=== PATIENT | male | born 1940 | race Caucasian/White ===

== ENCOUNTER → 2016-11-07 | Outpatient (CLI) | payer OTHER, BC ==
[~2016-11-07] VITALS: Ht 170.2 cm; Wt 101.6 kg
[~2016-11-07] MED LIST: ASPIR 8181 MG PO; ATORVASTATIN CA80 MG PO; BACLOFEN 10MG T10 M1 PO; BACLOFEN 10MG T10 MG PO; CENTRUM SILVER1 EAC4 PO; FISH OIL 1,2001 EAC4 PO; HYDROCODON-ACE1 EAC7 PO; HYDROCODONE-AP1 EAC6 PO; LEXAPRO 10 MG T10 M2 PO; LEXAPRO20 MG PO; NABUMETONE 500500 M1 PO; NABUMETONE 500500 M2 PO; NEURONTIN 300300 M1 PO; POTASSIUM20; POTASSIUM99 M1 PO; PRILOSEC 20 MG20 MG PO; STATIN; VERAPAMIL ER180 MG PO; VITAMINC500 PO; VOLTAREN GEL 1100 G1 TOP; ZANAFLEX4 MG PO; ZETIA10 MG PO
--- NOTE | ~2016-11-07 | HPC ---
[facility] [address] [place] [place] [address] PAIN MANAGEMENT CONSULTATION Name: DAVE MEJIAS Room #: REG CHEVY Jeni#: [id number] Admission: 11/07/16 Attend Phys: Bert Beard DO Discharge: Date of : 40 Report #: [id number] THIS REPORT FOR: //name// CC: Bert Monge RN DATE OF SERVICE: 11/07/2016 REFERRING PHYSICIAN: Sarah Monge RN CHIEF COMPLAINT: Right mid back pain. HISTORY OF PRESENT ILLNESS: As you know, the patient is a 76-year-old male who returns today in followup visit with new onset of right mid back pain. The patient has been advised by his chiropractor that he has "a displaced rib." The patient sought evaluation through neurosurgery as he has recently been treated for lumbar radicular symptoms with surgical options. Their evaluation indicated tenderness in the right mid back area, I was contacted by phone by nurse practitioner, Sarah Monge and we discussed having the patient undergo imaging of the thoracic area to determine if there is specific pathology noted. The patient was subsequently referred back to our clinic with the recent imaging study to review and discuss treatment options for his right midback pain. He denies injury or trauma that may have led to symptoms. He is placing his pain score today somewhere up to 1-3/10. He indicates that pain is just present, it just hurts, there does not seem to be anything that exacerbates symptoms except lying on that side, improves with medications. He was recently given Voltaren gel at our suggestion and this has nearly resolved symptoms. ALLERGIES: No known drug allergies. CURRENT MEDICATIONS: Voltaren gel apply topically up to 3 times a day, hydrocodone 5/325 one tab p.o. q.6 hours p.r.n. for pain, aspirin 81 mg per day, Lexapro 10 mg per day, atorvastatin 80 mg per day, omega-3 fish oil 1 tab per day, potassium gluconate 90 mg per day, omeprazole 20 mg per day, ascorbic acid 500 mg once a day, multivitamin 1 tab per day, Aleve 220 mg p.r.n., and verapamil 180 mg per day. SOCIAL HISTORY: The patient denies tobacco, IV or illicit drug use, admits to 4 alcohol beverages per day. He is newly retired. He is accompanied by his who is present in room today. IMAGING: X-ray of thoracic spine obtained on 11/03/2016 shows mild scoliotic curvature in the lower thoracic area convex to the right mineralization appears normal. No fractures identified. No lytic or blastic lesions present. Intervertebral disks showed narrowing and degeneration of [place] [address] PAIN MANAGEMENT CONSULTATION Name: DAVE MEJIAS Room #: REG CHEVY Ngo#: [id number] Admission: 11/07/16 Attend Phys: Bert Beard DO Discharge: Date of : 40 Report #: [id number] the mid and lower thoracic area, disk space narrowing greatest at T7, T8 and T9, mild osteophytic formation. The impression was some mild degenerative arthritic changes in the mid to lower thoracic area intervertebral disk space narrowing, degenerative disk disease, no displaced ribs. PHYSICAL EXAMINATION: VITAL SIGNS: Blood pressure 131/73, pulse 74, respiratory rate 20 and unlabored, the patient is 97% on room air, height 5 feet 7 inches tall, weight 224 pounds, and BMI calculated 35.1. GENERAL: Well-developed, well-nourished, well-hydrated, morbidly obese 76-year-old male, appearing stated age, placing current pain score at around 1-2/10. HEENT: Normocephalic, atraumatic. Pupils are equal, round, and reactive to light. Extraocular muscles are intact. Sclerae are nonicteric without injection. NEUROLOGIC: Cranial nerves 2-12 are grossly intact. Speech is fluent. EXTREMITIES: Show no clubbing, no cyanosis, and no edema. MUSCULOSKELETAL: The patient does have palpatory tenderness over the right mid back area. There is a significant amount of muscle spasming in and around the lower rib area, the rib itself is palpable and there is a slight fullness of the right mid back versus the left. The patient is intact to light touch from T1 through T12 dermatomes. Deep inhalation and exhalation causes no change in pain. Normal tidal volume, breathing causes no change in symptoms. Deep palpation causes no radiation of pain. ASSESSMENT: 1. Myofascial pain. 2. 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 3. Muscle spasming. PLAN: 1. Based on today's physical exam, history the patient has provided, the description the patient uses in regards to pain as well as location of symptoms and the lack of any specific pathology noted in x-ray imaging, likely source of the patient's pain is myofascial in origin. It does appear that the iliocostalis muscle and possibly even partial anterior spasming is noted in the lower portion of the thoracic area. The pain the patient is experiencing appears to be related to the musculature attached to the lower 2 ribs, right-sided #11 and #12. There is no appreciable ecchymosis or bruising concerning of any rib fractures. Findings on x-ray imaging show no fractures themselves. There has been no injury that may have led to the symptoms. The patient recently underwent surgery and I believe the surgical process may have exacerbated muscle spasming and caused some scarring in the area and this is caused tension in the musculature. I would recommend a very conservative approach to treatment. Given the fact the patient was started on Voltaren only a couple of days back with sample of Voltaren gels with good efficacy, the [facility] [address] [place] [address] PAIN MANAGEMENT CONSULTATION Name: DAVE MEJIAS Room #: REG CHEVY Ngo#: [id number] Admission: 11/07/16 Attend Phys: Bert Beard DO Discharge: Date of : 40 Report #: [id number] likely source of the symptoms is myofascial given the impressive improvement in symptoms with topical 1% diclofenac. The following was discussed with the patient for conservative treatment. 2. The patient will be sent for physical therapy twice a week for 4 weeks, differential diagnosis myofascial pain and lower right thoracic pain. The patient will begin this physical therapy as quickly as possible. He will utilize the Voltaren gel on an as needed basis to assist in pain control while he undergoes PT. I believe that stretching and core strengthening in this patient's case would be optimal in treatment for this symptom. 3. The patient did receive excellent improvement in symptoms with the Voltaren gel. I see no reason to not to continue this medication. We provided the patient with Voltaren gel 1% solution prescription. He was given five 100 g tubes for application of 4 inches up to 4 times a day to affected area. This has been extremely beneficial for the patient. He has noted near complete resolution of symptoms with this medication. He continues to experience some muscle spasming for which we will treat with other therapies. He was given this prescription with two refills. 4. The patient was provided a prescription of tizanidine 4 mg dose, he can take this tablet up to 3 times a day for muscle spasming, given #60 tablets, 2 refills. The patient was advised not to drive or operate heavy equipment while on this muscle spasming medication. 5. We wish to thank Sarah Monge for the opportunity to see the patient back in consultation. We are hopeful that the suggestions treatment options will improve the patient's overall pain. We will see him back in followup visit on an as needed basis. By: [id number] Bert Beard DO /nt
[2016-11-07 08:50] VITALS: BP 131/73
== END ==
LOC: PAIN 06:51
DX: M79.1 Myalgia (principal); E66.01 Morbid (severe) obesity due to excess calories; Z68.35 Body mass index [BMI] 35.0-35.9, adult; M46.84 Other specified inflammatory spondylopathies, thoracic region; Z79.82 Long term (current) use of aspirin; Z87.891 Personal history of nicotine dependence

== ENCOUNTER → 2018-01-09 | Outpatient (CLI) | payer OTHER ==
[~2018-01-09] VITALS: Ht 170.2 cm; Wt 99.3 kg
[~2018-01-09] MED LIST changes: +ALEVE220 MG PO
--- NOTE | ~2018-01-09 | HPC ---
[facility] [address] [address] PAIN MANAGEMENT CONSULTATION Name: DAVE MEJIAS Room #: REG CHEVY Jeni#: [id number] Admission: 01/09/18 Attend Phys: Bert Beard DO Discharge: Date of : 40 Report #: [id number] THIS REPORT FOR: //name// CC: Bert CALDERON DATE OF SERVICE: 01/09/2018 REFERRING NURSE PRACTITIONER: Sarah Monge NP CHIEF COMPLAINT: Bilateral upper buttock pain. HISTORY OF PRESENT ILLNESS: As you know, the patient is a very pleasant 77-year-old male who returns today in followup visit per the request of his Neurosurgery team to discuss the possibility of undergoing bilateral SI joint injections. The patient is reporting bilateral upper buttock pain for which he places pain scores 7-9/10. He states his pain is constant in nature. He uses descriptors as burning, shooting, hot poker-like sensation when describing pain. He states the pain is exacerbated with walking, improves with sitting and resting. He sought evaluation through the Neurosurgery team who requested that we see the patient in regards to bilateral SI joint injections. He has been referred back to our clinic to discuss this option of treatment. He denies new injury or new trauma, but has had surgery since our last visit. This was a surgery performed through [facility] on his low back. ALLERGIES: No known drug allergies. CURRENT MEDICATIONS: Hydrocodone, gabapentin, nabumetone, Lexapro, atorvastatin, omega-3 fish oil, potassium gluconate, Zetia, omeprazole, ascorbic acid, multivitamin and verapamil. SOCIAL HISTORY: The patient denies tobacco, IV or illicit drug use. Admits to 1 alcohol beverage per day. He is retired. He is accompanied by his who is present in room today. IMAGING: MRI of lumbar spine obtained on 12/05/2017 shows scoliotic curvature of the lumbar spine, degenerative changes throughout osteophyte complexes at L2-L3, L3-L4 and L4-L5, facet arthropathy noted at L4-L5, diffuse annular disk bulge, central canal measuring 9 mm. This is the same at L5-S1. PHYSICAL EXAMINATION: VITAL SIGNS: Blood pressure 127/68, pulse 64, respiratory rate 18, unlabored. The patient is 95% on room air. Height 5 feet 7 inches tall, weight 219 pounds, BMI calculated 34.3. GENERAL: A well-developed, well-nourished, well-[place] [address] PAIN MANAGEMENT CONSULTATION Name: DAVE MEJIAS Room #: REG CLI [facility]#: [id number] Admission: 01/09/18 Attend Phys: Bert Beard DO Discharge: Date of : 40 Report #: [id number] 77-year-old male, appears stated age, placing his current pain score 9/10. HEENT: Normocephalic, atraumatic. Pupils equal, round, reactive to light. Extraocular muscles are intact. EXTREMITIES: Show no clubbing, no cyanosis, no edema. MUSCULOSKELETAL: There is some palpatory tenderness over the SI joints bilaterally. Deep palpation of this area causes mild intensification of pain. He is also quite tender to palpation lateral to the SI joints overlying what appears to be the buttock musculature. Seated straight leg raising negative. Supine straight leg raising negative. There is a well-healed surgical scar over the lumbar spine. No erythema, no drainage. ASSESSMENT: 1. Bilateral sacroiliac joint dysfunction. 2. Chronic intractable back pain. 3. Lumbosacral spondylosis without radiculopathy. PLAN: 1. The patient has been referred back to our clinic by his Neurosurgery team to trial bilateral SI joint injections. The patient does have some tenderness to palpation today over the SI joints. His exacerbating factors is walking, which would correlate with SI joint dysfunction. We have discussed the injections with the patient today. We have advised him on the risks and benefits. These risks include but are not necessarily limited to bleeding, bruising, infection, worsening pain, no relief of pain and also risk of temporary or permanent muscle weakness, temporary or permanent joint damage. The patient states he understood and did wish to proceed. 2. The patient was advised that third green party payers require that authorization be obtained before he could undergo bilateral SI joint injection. We will begin the authorization process immediately, contact the patient once this has been completed and have him return to undergo bilateral SI joint injections per the request of his Neurosurgery team. The patient was advised this could take anywhere from 4-7 working days, will begin the process today. 3. No medication changes made at today's visit. The patient will continue current medical therapy as previously prescribed. 4. I will see the patient back in followup visit once we have achieved authorization for him to undergo bilateral SI joint injections under fluoroscopic guidance. By: [id number] Bert Beard DO /nt
[2018-01-09 09:38] VITALS: BP 127/68
== END ==
LOC: PAIN 07:07
DX: M47.817 Spondylosis without myelopathy or radiculopathy, lumbosacral region (principal); G89.4 Chronic pain syndrome; M53.3 Sacrococcygeal disorders, not elsewhere classified

== ENCOUNTER → 2018-01-16 | Outpatient (CLI) | payer OTHER ==
[~2018-01-16] VITALS: Ht 170.2 cm; Wt 100.7 kg
--- NOTE | ~2018-01-16 | HPC ---
[address] [address] PAIN MANAGEMENT CONSULTATION Name: DAVE MEJIAS Room #: REG CLKristen Jeni#: [id number] Admission: 01/16/18 Attend Phys: Bert Beard DO Discharge: Date of : 40 Report #: [id number] THIS REPORT FOR: //name// CC: Bert Manley NP DATE OF SERVICE: 01/16/2018 REFERRING PHYSICIAN: Sarah Manley NP CHIEF COMPLAINT: Bilateral upper buttock pain. HISTORY OF PRESENT ILLNESS: As you know, the patient is a very pleasant 77-year-old male who has returned today in followup visit receiving preauthorization to undergo bilateral SI joint injections per the request of his neurosurgery team. There is concern that the patient is suffering from bilateral SI joint pain, which is compounding his ongoing pain issues. He has been referred back to our clinic to trial this injection. We saw the patient on 01/09/2018, advised that third green party payer restrictions require that authorization be obtained, he is now obtained this authorization, returning today to undergo the procedure. He is placing pain score at 8/10, states his pain is constant, burning, shooting, hot poker like in sensation, exacerbated with walking and standing, improves with rest and repositioning. He returns for bilateral SI joint injections. ALLERGIES: No known drug allergies. CURRENT MEDICATIONS: Hydrocodone, gabapentin, nabumetone, Lexapro, atorvastatin, omega-3 fish oil, potassium gluconate, Zetia, omeprazole, ascorbic acid, multivitamin, and verapamil. SOCIAL HISTORY: The patient denies tobacco, IV or illicit drug use, admits to one alcoholic beverage per day. He is retired. He is unaccompanied today. IMAGING: No new imaging available. PHYSICAL EXAMINATION: VITAL SIGNS: Blood pressure 124/71, pulse 58, respiratory rate 16 and unlabored, the patient is 95% on room air, height 5 feet 7 inches tall, weight 222 pounds, BMI calculated 34.8. GENERAL: Well-developed, well-nourished, well-hydrated, exogenously obese 77-year-old male, appearing stated age, placing current pain score at 8/10. HEENT: Normocephalic, atraumatic. Pupils are equal, round, and reactive to light. [address] [address] PAIN MANAGEMENT CONSULTATION Name: RANDELLDAVE Viry [facility] [id number] Admission: 01/16/18 Attend Phys: Bert Beard DO Discharge: Date of : 40 Report #: [id number] EXTREMITIES: Show no clubbing, no cyanosis, and no edema. MUSCULOSKELETAL: Seated straight leg raising negative. Supine straight leg raising negative. Sae's test negative. There is palpatory tenderness over the paraspinal musculature of lower lumbar spine, no spinous process tenderness. Deep palpation over the SI joint causes intensification of pain. ASSESSMENT: 1. Bilateral sacroiliac joint pain. 2. Chronic intractable pain. 3. Continued lumbosacral spondylosis without radicular symptoms. PLAN: 1. The patient has returned today in followup visit having received precertification to undergo bilateral SI joint injections under fluoroscopic guidance. The patient has been advised of the risks and the benefits of this procedure. These risks include, but not necessarily limited to bleeding, bruising, infection, worsening of pain, no relief of pain, also risk of temporary or permanent muscle weakness, temporary or permanent nerve damage, possible paralysis and potential . The patient states understood and wished to proceed. 2. No medication changes made at today's visit. The patient to continue current medical therapy as previously prescribed. 3. The patient will return to our clinic on an as needed basis for the potential next in the series of SI joint injections. He leaves today with a pain score 0/10 indicating the likely source of the patient's symptoms are the SI joints given the immediate response to the local anesthetic within the injection. PROCEDURE NOTE DESCRIPTION OF PROCEDURE: Bilateral SI joint injections under fluoroscopic guidance. After obtaining written consent, the patient was taken back to fluoroscopy suite, placed in a prone position with pillow under abdomen to decrease lumbar lordosis. Skin overlying the gluteal sacral area directly over the left SI joint and right SI joint were prepped and draped in aseptic fashion. A medial to lateral oblique projection allowed separation of the anterior and posterior branches of the joint space to be visualized. Skin and subcutaneous tissue overlying target site of injection was anesthetized with 3 mL of 1% lidocaine. A 22-gauge 3-1/2-inch spinal needle with bent tip was directed to the inferior aspect of the right SI joint using a posterior approach. A "giving away" at the needle hub was noted once the dorsal sacroiliac and interosseous ligaments were engaged. After negative aspiration for heme, a total of 0.4 mL of Omnipaque was injected, outlining the inferior recess of the joint. Provocation responses consistent of intense buttock pain were negative. After negative aspiration for [facility] [address] [place] [address] PAIN MANAGEMENT CONSULTATION Name: DAVE MEJIAS Room #: REG CHEVY Ngo#: [id number] Admission: 01/16/18 Attend Phys: Bert Beard DO Discharge: Date of : 40 Report #: [id number] heme, 3 mL of a solution containing 1 mL 40 mg per mL, 40 mg total triamcinolone, 2 mL bupivacaine 0.5% injected slowly. Needle retracted senior living, flushed with 1 mL of 1% lidocaine and removed. Our attention was then directed to the left SI joint. A 22-gauge 3-1/2-inch spinal needle with bent tip was directed to the inferior aspect of the sacroiliac joint using a posterior approach. A "giving away" at the needle hub was noted once the dorsal sacroiliac interosseous ligaments were engaged. After negative aspiration for heme, 0.4 mL of Omnipaque injected, outlining the inferior recess of the joint. Provocation responses consistent of intense buttock pain were negative. After negative aspiration for heme, 3 mL of a solution containing 1 mL 40 mg per mL, 40 mg total triamcinolone, 2 mL bupivacaine 0.5% injected slowly. Needle retracted senior living, flushed with 1 mL of 1% lidocaine and removed. Sterile bandages were placed over each injection sites. The patient tolerated the procedure well, carefully escorted to recovery room in stable condition. VAS before procedure rated at 8/10, VAS 10 minutes after procedure rated at 0/10. The patient discharged in good and healthy condition. By: [id number] Bert Beard, DO /nt
[2018-01-16 10:32] VITALS: BP 124/71
== END | disposition home or self-care (01) ==
LOC: PAIN 07:02
DX: M53.3 Sacrococcygeal disorders, not elsewhere classified (principal); G89.29 Other chronic pain; M47.816 Spondylosis without myelopathy or radiculopathy, lumbar region; Z79.891 Long term (current) use of opiate analgesic; Z79.82 Long term (current) use of aspirin; Z79.899 Other long term (current) drug therapy

== ENCOUNTER → 2018-11-20 | Outpatient (CLI) | payer OTHER ==
[~2018-11-20] VITALS: Ht 170.2 cm; Wt 94.8 kg
[~2018-11-20] MED LIST changes: -LEXAPRO 10 MG T10 M2 PO
--- NOTE | ~2018-11-20 | HPC ---
[facility] [place] [address] PAIN MANAGEMENT CONSULTATION Name: DAVE MEJIAS Room #: REG CHEVY Jeni#: [id number] Admission: 11/20/18 ������������������ Attend Phys: Bert Beard DO Discharge: ������������������ Date of : 40 Report #: [id number] THIS REPORT FOR: //name// CC: Bert Manley NP DATE OF SERVICE: 11/20/2018 CHIEF COMPLAINT: Low back pain. HISTORY OF PRESENT ILLNESS: As you know, the patient is a 78-year-old male with long-standing history of axial back pain issues. He has been lost to follow up since 01/16/2018 where he was provided treatment for bilateral SI joint pains per the request of his neurosurgery team. He has had resolution of his SI joint symptoms, but now is experiencing axial back pain issues. He has not sought evaluation through his primary care physician in regards to this issue nor has he sought treatment or suggested treatment through Neurosurgery. He has returned to our clinic to discuss options for treatment for this axial back pain. He denies injury or trauma that may have led to symptom recurrence. ALLERGIES: No known drug allergies. CURRENT MEDICATIONS: Hydrocodone, gabapentin, Celebrex, Lexapro, atorvastatin, omega-3 fish oil, potassium gluconate, Zetia, omeprazole, ascorbic acid, multivitamin, verapamil. SOCIAL HISTORY: The patient denies tobacco, IV or illicit drug use. Admits to one alcohol beverage per day. He is unaccompanied today. IMAGING: No new imaging available. PHYSICAL EXAMINATION: VITAL SIGNS: Blood pressure 130/84, pulse 63, respiratory rate 16 and unlabored, the patient is 97% on room air. Height 5 feet 7 inches tall, weight 209 pounds, BMI calculated at 32.7. GENERAL: Well-developed, well-nourished, well-hydrated, exogenously obese 78-year-old male, appearing his stated age. Pain is rated around 3/10. HEENT: Normocephalic, atraumatic. Pupils are equal, round, and reactive to light. Speech fluent. EXTREMITIES: Show no clubbing, no cyanosis, and no edema. MUSCULOSKELETAL: There is palpatory tenderness over the paraspinal musculature of lower lumbar spine. No spinous process tenderness. Seated straight leg raising negative. Supine straight leg raising negative. REGLA test is negative. Modified Gaenslen's positive for axial low back pain. Ankle clonus [facility] [address] [place] [address] PAIN MANAGEMENT CONSULTATION Name: DAVE MEJIAS Room #: REG CLKristen WalkerAngella#: [id number] Admission: 11/20/18 ������������������ Attend Phys: Bert Beard DO Discharge: ������������������ Date of : 40 Report #: [id number] negative. Babinski is negative. Pain is improved with forward flexion of lumbar spine approximately 15 degrees. Exacerbated with extension, rotation and lateral flexion of the lumbar spine. ASSESSMENT: 1. Lumbosacral spondylosis without radiculopathy. 2. Obesity. 3. Chronic intractable pain. PLAN: 1. The patient returns today in followup visit with continued axial back pain. As indicated in previous evaluations, he is suffering from facet arthropathy of the lumbar spine and has been advised treatments in the past. We discussed it again today. We discussed physical therapy, stretching exercises, core strengthening as a way to treat symptoms as well as concerted effort of weight loss. We discussed medication adjustments, putting him back on the nabumetone and discontinuing his Celebrex in hopes of providing better benefit with higher analgesic effect. We discussed intra-articular facet injections, medial branch nerve blocks and radiofrequency lesioning as treatment options for facet arthropathy pain. Ultimately, we discussed surgical options. After reviewing risks and benefits of all proposed treatment options, the patient chose to move forward with intra-articular facet injections under fluoroscopic guidance to address the bilateral L4-L5, L5-S1 facet joints. 2. The patient will discontinue his Celebrex for the next week. In place, he will reinitiate the nabumetone therapy. Recommend 500 mg 3 times a day with meals. This will be only for a very short period of time, but to determine if his symptoms would be amenable to a more effective anti-inflammatory. The patient has this medication available and does not need a refill. 3. We will see the patient back in followup visit as soon as we have received preauthorization for the patient to undergo bilateral L4-L5, L5-S1, intra-articular facet injections to be done under fluoroscopy. I did advise the patient this could take anywhere from 4 to 7 working days. We will begin this process immediately and contact the patient once it has been completed. 4. We will see the patient back in followup visit, hopefully next week to undergo the procedure as indicated above. ��������������������������������������������� ���������������������������������������� By: ��������������������������������������������� [id number] Bert Beard DO /nt
[2018-11-20 08:25] VITALS: BP 138/84
--- NOTE | 2018-11-20 08:53 | NUR ---
Pain Clinic Assessment: 1. History of Osteoarthritis: RIGHT SHOULDER LOW BACK History of Rheumatoid Arthritis: 2. Height: 5 ft. 7 in. 170.2 cm. Weight: 209.0 lb. oz. 94.802 kg. Patient's BMI: 32.7 3. Vital Signs: BP: 138/84 Pulse: 63 Resp: 16 Temp: 02 Sat: 97 ECG Mon: 4. Pain Intensity: 3 5. Fall Risk: Dizziness: N Needs help standing or walking: N Fallen in the last 3 months: Y Fall risk comments: 6. Patient on Blood Thinner: None 7. History of Hypertension: N 8. Opioid Therapy greater than 6 weeks: Y Opiate Contract Signed: 02/09/16 9. Risk Assessment Tool Provided: 3 LOW RISK 10. Functional Assessment Tool: 11. Recreational Drug Use: Never Drug Type: Tobacco Use: Former Smoker Tobacco Type: Amount or Packs/day: How Many Years: Alcohol Use: Yes Frequency: Quant:
== END ==
LOC: PAIN 06:54
DX: M47.817 Spondylosis without myelopathy or radiculopathy, lumbosacral region (principal); E66.9 Obesity, unspecified; G89.4 Chronic pain syndrome; Z79.899 Other long term (current) drug therapy

== ENCOUNTER → 2018-11-27 | Outpatient (CLI) | payer OTHER ==
[~2018-11-27] VITALS: Ht 170.2 cm; Wt 95.0 kg
[~2018-11-27] MED LIST changes: +NABUMETONE PO
[2018-11-27 08:27] VITALS: BP 125/73
--- NOTE | 2018-11-27 08:44 | NUR ---
Pain Clinic Assessment: 1. History of Osteoarthritis: RIGHT SHOULDER LOW BACK History of Rheumatoid Arthritis: 2. Height: 5 ft. 7 in. 170.2 cm. Weight: 209.4 lb. oz. 94.983 kg. Patient's BMI: 32.8 3. Vital Signs: BP: 125/73 Pulse: 66 Resp: 20 Temp: 02 Sat: 97 ECG Mon: 4. Pain Intensity: 1 TODAY 8 LAST MIKALA 5. Fall Risk: Dizziness: N Needs help standing or walking: N Fallen in the last 3 months: N Fall risk comments: 6. Patient on Blood Thinner: None 7. History of Hypertension: N 8. Opioid Therapy greater than 6 weeks: Y Opiate Contract Signed: 02/09/16 9. Risk Assessment Tool Provided: 3 LOW RISK 10. Functional Assessment Tool: 11. Recreational Drug Use: Never Drug Type: Tobacco Use: Former Smoker Tobacco Type: Amount or Packs/day: How Many Years: Alcohol Use: Yes Frequency: Quant:
--- NOTE | 2018-12-03 07:41 | HPC ---
[facility] [place] [address] PAIN MANAGEMENT CONSULTATION Name: RANDELLDAVE Baires Room #: REG CHEVY Jeni#: [id number] Admission: 11/27/18 ������������������ Attend Phys: Bert Beard DO Discharge: ������������������ Date of : 40 Report #: [id number] THIS REPORT FOR: //name// CC: Bert Manley NP DATE OF SERVICE: 11/27/2018 CHIEF COMPLAINT: Axial back pain. HISTORY OF PRESENT ILLNESS: As you know, the patient is a 78-year-old male with longstanding history of axial back pain issues. He has been referred back to our clinic to address facet arthropathy pain. He was seen in consultation on 11/20/2018 where he was diagnosed with lumbosacral spondylosis without radiculopathy and advised of treatment options for facet arthropathy pain, which include intra-articular facet injections, medial branch nerve blocks and radiofrequency ablation. He chose to begin with the intra-articular facet injections and thus we have made the appointment today. We have had received preauthorization for the patient to undergo bilateral L4-L5, L5-S1 intra-articular facet injections per the request of his neurosurgery team. ALLERGIES: No known drug allergies. CURRENT MEDICATIONS: See chart. SOCIAL HISTORY: The patient denies tobacco, IV or illicit drug use. Admits to one alcoholic beverage per day. He is unaccompanied at today's visit. IMAGING: No new imaging available. PHYSICAL EXAMINATION: VITAL SIGNS: Blood pressure 125/73, pulse 66, respiratory rate 20 and unlabored. The patient is 97% on room air. Height 5 feet 7 inches tall, weight 209.4 pounds, BMI calculated 32.8. GENERAL: Well-developed, well-nourished, well-hydrated exogenously obese 78-year-old male appearing stated age, pain is rated right today at 1-2/10, 8/10 last night. HEENT: Normocephalic, atraumatic. Pupils equal, round, reactive to light. Extraocular muscles are intact. Sclerae nonicteric without injection. Speech fluent. EXTREMITIES: Show no clubbing, no cyanosis, and no edema. MUSCULOSKELETAL: Palpatory tenderness is noted over the paraspinal musculature again of the lumbar spine. No spinous process tenderness. Seated straight leg raising negative. Supine straight leg raising negative. Sae's test negative. [address] [address] PAIN MANAGEMENT CONSULTATION Name: DAVE MEJIAS [id number] Admission: 11/27/18 ������������������ Attend Phys: Bert Beard DO Discharge: ������������������ Date of : 40 Report #: [id number] Modified Ella's positive for axial low back pain. Lumbar provocation testing including extension, rotation, lateral flexion all intensify axial back pain. ASSESSMENT: 1. Lumbosacral spondylosis without radiculopathy. 2. Obesity. 3. Chronic low back pain. 4. Chronic intractable pain. PLAN: 1. The patient returns today in followup visit to undergo intra-articular facet injections of the L4-L5 and L5-S1 levels. He has been advised of the risks and benefits of this procedure. These risks include but are not necessarily limited to bleeding, bruising, infection, worsening pain, no relief of pain, also risk of temporary or permanent muscle weakness, temporary or permanent nerve damage and possible joint destruction and . The patient states understood and wished to proceed. 2. No medication changes made at today's visit. He will continue the nabumetone 500 mg dose 1 tab p.o. b.i.d. and I did give him a prescription of this medication with 2 refills. He is denying any side effects with its use. 3. The patient was provided prescription of Boling 5/325 one tab p.o. q. 6 hours p.r.n. for pain. I have given the patient #60 tablets to take on an as needed basis. 4. We will see the patient back in followup visit on an as needed basis. At that time, review the efficacy of the intra-articular facet injections. DESCRIPTION OF PROCEDURE: Bilateral L4-L5, L5-S1 intra-articular facet injections under fluoroscopic guidance. This is the first procedure of the first series that the patient is undergoing. After obtaining written consent, the patient was taken back to the fluoroscopy suite and placed in a prone position with a pillow under the abdomen to decrease the lumbar lordosis and to facilitate needle entry into the facet joints. The skin overlying the lumbosacral area was prepped and draped in an aseptic fashion. AP and lateral fluoroscopic imaging was obtained. Optimal position of the fluoroscope occurred when the joint line was first visualized. The facet joints were identified radiographically directed adjacent to the superior articular process of the caudad vertebrae. The skin overlying the target sites of injection was anesthetized using 3 mL of 1% lidocaine. A 22 gauge 3-1/2 inch spinal needle with a bent tip was advanced towards the L4-L5 and L5-S1 facet joints on the right and left sides under fluoroscopic guidance. The firm posterior capsule had its characteristic feel and the needle was advanced a few additional millimeters beyond the joint capsule into the joint [address] [address] PAIN MANAGEMENT CONSULTATION Name: DAVE MEJIAS Room #: REG [facility]#: [id number] Admission: 11/27/18 ������������������ Attend Phys: Bert Beard DO Discharge: ������������������ Date of : 40 Report #: [id number] space, but not into the articular cartilage. After the joint space was entered and aspiration was negative for heme or CSF, 0.2 mL of Omnipaque was injected demonstrating a characteristic facet arthrogram. After negative aspiration for heme or CSF, 1.5 mL of a solution containing 2 mL 40 mg per mL, 80 mg total triamcinolone and 6 mL of bupivacaine 0.5% was slowly injected at each of 4 facets. The needles were then removed. There were no apparent complications. The patient tolerated the procedure well and was carefully escorted to the recovery room in stable condition. The VAS was 3/10 before the procedure and 0/10 minutes after the procedure. After meeting discharge criteria, the patient was discharged home. ��������������������������������������������� <ELECTRONICALLY SIGNED> ���������������������������������������� By: Bert Beard DO ��������������������������������������������� 12/03/18 0741 [id number] Bert Beard DO /nt
== END | disposition home or self-care (01) ==
LOC: PAIN 06:42
DX: M47.817 Spondylosis without myelopathy or radiculopathy, lumbosacral region (principal); E66.9 Obesity, unspecified; G89.29 Other chronic pain; Z79.899 Other long term (current) drug therapy; Z98.890 Other specified postprocedural states; Z87.891 Personal history of nicotine dependence; Z79.82 Long term (current) use of aspirin

== ENCOUNTER → 2019-04-23 | Outpatient (CLI) | payer OTHER ==
[~2019-04-23] VITALS: Ht 170.2 cm; Wt 94.2 kg
[~2019-04-23] MED LIST changes: +NORCO 5-325 TA1 EAC1 PO; -VITAMINC500 PO; +VITCB500GO PO
[2019-04-23 09:14] VITALS: BP 154/86
--- NOTE | 2019-04-23 09:27 | NUR ---
Pain Clinic Assessment: 1. History of Osteoarthritis: RIGHT SHOULDER LOW BACK History of Rheumatoid Arthritis: 2. Height: 5 ft. 7 in. 170.2 cm. Weight: 207.6 lb. oz. 94.167 kg. Patient's BMI: 32.5 3. Vital Signs: BP: 154/86 Pulse: 66 Resp: 16 Temp: 02 Sat: 97 ECG Mon: 4. Pain Intensity: 3-6 5. Fall Risk: Dizziness: N Needs help standing or walking: N Fallen in the last 3 months: N Fall risk comments: 6. Patient on Blood Thinner: None 7. History of Hypertension: N 8. Opioid Therapy greater than 6 weeks: Y Opiate Contract Signed: 02/09/16 9. Risk Assessment Tool Provided: 3 LOW RISK 10. Functional Assessment Tool: 11. Recreational Drug Use: Never Drug Type: Tobacco Use: Former Smoker Tobacco Type: Amount or Packs/day: How Many Years: Alcohol Use: Yes Frequency: Daily Quant: WINE
--- NOTE | 2019-04-29 07:47 | HPC ---
[facility] [address] [place] [address] PAIN MANAGEMENT CONSULTATION Name: RANDELLDAVE E Room #: REG CHEVY Ngo#: [id number] Admission: 04/23/19 Attend Phys: Bert Beard DO Discharge: Date of : 40 Report #: [id number] THIS REPORT FOR: //name// CC: Bert CALDERON DATE OF SERVICE: 04/23/2019 CHIEF COMPLAINT: Axial back pain. HISTORY OF PRESENT ILLNESS: As you know, the patient is a 79-year-old male with longstanding history of axial back pain issues. He is referred back to our clinic to address facet arthropathy pain. He has undergone facet injections per the Neurosurgery requests with good efficacy. The most recent injections gave greater than 50% improvement in overall pain, lasting for almost 2-1/2 months. He returns today in followup visit to begin the authorization process to undergo bilateral L4-L5, L5-S1 intra-articular facet injections under fluoroscopic guidance. The patient places pain today at around 3-6/10 depending on activity. He denies new injury or trauma that may have exacerbated symptoms. He states that walking and standing exacerbates pain, sitting and repositioning as well as the intra-articular facet injections provided benefit for pain. ALLERGIES: No known drug allergies. CURRENT MEDICATIONS: Zetia 10 mg once a day, nabumetone 500 mg twice a day, hydrocodone 5/325 one tab every 8 hours p.r.n. for pain, aspirin 81 mg per day, escitalopram 20 mg 2 tabs per day, atorvastatin 80 mg per day, omega-3 fish oil 1 tab per day, potassium gluconate 99 mg per day, omeprazole 20 mg per day, ascorbic acid 500 mg once a day, multivitamin 1 tab per day, verapamil ER 180 mg once a day. SOCIAL HISTORY: The patient denies tobacco, IV or illicit drug use. He admits to at least 1 alcohol beverage per day. He is unaccompanied at today's visit. IMAGING: No new imaging available. PHYSICAL EXAMINATION: VITAL SIGNS: Blood pressure 154/86, pulse 66, respiratory rate 16 and unlabored. The patient is 97% on room air. Height 5 feet 7 inches tall, weight 207.6 pounds, BMI calculated 32.5. GENERAL: Well-developed, well-nourished, well-hydrated exogenously obese 79-year-old male, appearing stated age, pain is rated anywhere from 3-6/10 depending on activity. HEENT: Normocephalic, atraumatic. Pupils equal, round, reactive to light. EXTREMITIES: Show no clubbing, no cyanosis, no edema. [facility] [address] [place] [address] PAIN MANAGEMENT CONSULTATION Name: DAVE MEJIAS Room #: REG CHEVY Ngo#: [id number] Admission: 04/23/19 Attend Phys: Bert Beard DO Discharge: Date of : 40 Report #: [id number] MUSCULOSKELETAL: Lower extremity strength equal and symmetrical 5/5. Slight giveaway strength noted with hip flexion on the left due to increased back pain when compared to the right. Seated straight leg raising negative. Supine straight leg raising negative. Sae's test negative. Modified Gaenslen's positive for axial low back pain. Ankle clonus negative. Babinski is negative. ASSESSMENT: 1. Lumbosacral spondylosis without radiculopathy. 2. Chronic low back pain. 3. Chronic intractable pain. PLAN: 1. The patient returns today in followup visit requesting to undergo repeat bilateral L4-L5, L5-S1 intra-articular facet injections under fluoroscopic guidance. The patient reports 50-60% improvement in overall pain with the intra-articular facet injections, lasting for almost 2-1/2 months. He returns today to begin the authorization process to be able to undergo this procedure again. I advised the patient this could take anywhere from 4-7 working days. We will begin the process immediately, contact the patient once it has been completed, so the patient can return to undergo the bilateral L4-L5, L5-S1 intra-articular facet injections proposed today. 2. The patient was provided a refill prescription on his hydrocodone 5/325 mg dose 1 tab p.o. q. 8 hours p.r.n. for pain. I have given the patient #60 tablets. He was advised to take the medication as directed and not to take the medication prophylactically. The patient's last prescription from our clinic was 11/27/2018, where he was given 60 tablets. He appears to be utilizing medication appropriately. We have checked the PDMP both on the [place] and [place] side. There are no concerning entries. 3. We will see the patient back in followup visit once we have achieved authorization for the patient to undergo bilateral L4-L5, L5-S1 intra-articular facet injections. We are hopeful we will have that information received quickly, so we can have the patient return to undergo the procedure. <ELECTRONICALLY SIGNED> By: eBrt Beard DO 04/29/19 0747 [id number] Bert Beard DO /nt
== END ==
LOC: PAIN 06:52
DX: M47.817 Spondylosis without myelopathy or radiculopathy, lumbosacral region (principal); M54.5 Low back pain; G89.4 Chronic pain syndrome

== ENCOUNTER → 2019-05-06 | Outpatient (CLI) | payer OTHER ==
[~2019-05-06] VITALS: Ht 170.2 cm; Wt 92.7 kg
[2019-05-06 13:31] VITALS: BP 138/83
--- NOTE | 2019-05-06 13:45 | NUR ---
Pain Clinic Assessment: 1. History of Osteoarthritis: RIGHT SHOULDER LOW BACK History of Rheumatoid Arthritis: Not Applicable 2. Height: 5 ft. 7 in. 170.2 cm. Weight: 204.4 lb. oz. 92.715 kg. Patient's BMI: 32.0 3. Vital Signs: BP: 138/83 Pulse: 78 Resp: 16 Temp: 02 Sat: 97 ECG Mon: 4. Pain Intensity: 2-3 5. Fall Risk: Dizziness: N Needs help standing or walking: N Fallen in the last 3 months: N Fall risk comments: 6. Patient on Blood Thinner: None 7. History of Hypertension: N 8. Opioid Therapy greater than 6 weeks: Y Opiate Contract Signed: 02/09/16 9. Risk Assessment Tool Provided: 3 LOW RISK 10. Functional Assessment Tool: 11. Recreational Drug Use: Never Drug Type: Tobacco Use: Former Smoker Tobacco Type: Amount or Packs/day: How Many Years: Alcohol Use: Yes Frequency: Quant:
--- NOTE | 2019-05-13 08:01 | HPC ---
[address] [address] PAIN MANAGEMENT CONSULTATION Name: RANDELLDAVE Viry Room #: REG [facility] Jeni#: [id number] Admission: 05/06/19 Attend Phys: Bert Beard DO Discharge: Date of : 40 Report #: [id number] THIS REPORT FOR: //name// CC: Bert CALDERON DATE OF SERVICE: 05/06/2019 CHIEF COMPLAINT: Axial back pain. HISTORY OF PRESENT ILLNESS: As you know, the patient is a 79-year-old male with longstanding history of axial back pain issues. He was referred back to our clinic to trial facet injections under fluoroscopic guidance. He has undergone facet injections per the request of Neurosurgery with good efficacy. The most recent injections providing good and prolonged benefit. Unfortunately, his symptoms have begun to return. He is now placing pain score at around 2-3/10. States his pain is constant in nature, exacerbated with walking and standing, improves with repositioning, sitting and previous intra-articular facet injections. He returns today to undergo next in the series in hopes of improving pain. We have received authorization for the patient to undergo the procedure today. He returns to undergo bilateral L4-L5, L5-S1 intra-articular facet injections in hopes of seeing similar improvement as he has with previous series. ALLERGIES: No known drug allergies. CURRENT MEDICATIONS: Zetia, nabumetone, hydrocodone, aspirin, escitalopram, atorvastatin, omega-3 fish oil, potassium gluconate, omeprazole, ascorbic acid, multivitamin, and verapamil. SOCIAL HISTORY: The patient denies tobacco, IV or illicit drug use. Admits to at least 1 alcohol beverage per day. He is accompanied by his present in room today. IMAGING: No new imaging available. PHYSICAL EXAMINATION: VITAL SIGNS: Blood pressure 138/83, pulse 78, respiratory rate 16 and unlabored. The patient is 97% on room air. Height 5 feet 7 inches tall, weight 204.4 pounds, BMI calculated 32. GENERAL: Well-developed, well-nourished, well-hydrated exogenously obese 79-year-old male appearing stated age, pain is rated today at 2-3/10. HEENT: Normocephalic, atraumatic. Pupils equal, round, reactive to light. Speech is fluent. The patient deemed a good historian. [address] [address] PAIN MANAGEMENT CONSULTATION Name: RANDELLDAVE Baires Room #: REG [place] Jeni#: [id number] Admission: 05/06/19 Attend Phys: Bert Beard DO Discharge: Date of : 40 Report #: [id number] EXTREMITIES: Show no clubbing, no cyanosis. MUSCULOSKELETAL: Lower extremity strength is symmetrical again today 5/5. Muscle bulk and tone is symmetrical in comparing left lower extremity to right. Seated straight leg raising is negative. Supine straight leg raising is negative. Sae's test is negative. Modified Gaenslen's positive for axial low back pain. Lumbar provocation testing is met with increased pain with extension, rotation, lateral flexion, slight improvement in symptoms with a slight forward flexion of lumbar spine. ASSESSMENT: 1. Lumbosacral spondylosis without radiculopathy. 2. Chronic low back pain. 3. Chronic intractable pain. PLAN: 1. The patient returns today in followup visit to undergo second in the series of intra-articular facet injections in hopes of improving pain. He received excellent benefit with previous series, returning today to undergo next in the series to address his residual 2-3/10 pain. He is very pleased with response to treatment. Returning today in hopes of seeing similar, if not better improvement and the potential reduction in overall pain allowing him to go about his activities of daily living. He has been advised risks and benefits of procedure, states understood and wished to proceed. 2. No medication changes made at today's visit. The patient will continue current medical therapy as previously prescribed. 3. We will see the patient back in followup visit on an as needed basis for possible next in the series of intra-articular facet injections or to discuss progression towards radiofrequency lesioning of the medial branch nerves of the lumbar spine DESCRIPTION OF PROCEDURE: Bilateral L4-L5, L5-S1 intra-articular facet injections under fluoroscopic guidance. This is the second procedure of the first series that the patient is undergoing. After obtaining written consent, the patient was taken back to the fluoroscopy suite and placed in a prone position with a pillow under the abdomen to decrease the lumbar lordosis and to facilitate needle entry into the facet joints. The skin overlying the lumbosacral area was prepped and draped in an aseptic fashion. AP and lateral fluoroscopic imaging was obtained. Optimal position of the fluoroscope occurred when the joint line was first visualized. The facet joints were identified radiographically directed adjacent to the superior articular process of the caudad vertebrae. The skin overlying the target site(s) of injection was anesthetized using 3 mL of 1% lidocaine. A 22-gague 3-1/2 inch spinal needle with a bend tip was advanced towards the L4-L5 [address] [address] PAIN MANAGEMENT CONSULTATION Name: DAVE MEJIAS Room #: REG [place] Ngo#: [id number] Admission: 05/06/19 Attend Phys: Bert Beard DO Discharge: Date of : 40 Report #: [id number] and L5-S1 facet joint(s) on the right and left sides under fluoroscopic guidance. The firm posterior capsule had its characteristic feel and the needle was advanced a few additional millimeters beyond the joint capsule into the joint space, but not into the articular cartilage. After the joint space was entered and aspiration was negative for heme or CSF, 0.2 mL of Omnipaque was injected demonstrating a characteristic facet arthrogram. After negative aspiration for heme or CSF, 1.5 mL solution containing 0.5 mL of triamcinolone 40 mg per mL, 20 mg total and 1 mL bupivacaine 0.5% was slowly injected at each of 4 facets. The needle (s) was then removed. There were no apparent complications. The patient tolerated the procedure well and was carefully escorted to the recovery room in stable condition. The VAS was 3/10 before the procedure and 0/10, ten minutes after the procedure. After meeting discharge criteria, the patient <ELECTRONICALLY SIGNED> By: Bert Beard DO 05/13/19 0801 [id number] [id number] Bert Beard DO /nt
== END | disposition home or self-care (01) ==
LOC: PAIN 06:57
DX: M54.9 Dorsalgia, unspecified (principal); M47.817 Spondylosis without myelopathy or radiculopathy, lumbosacral region; M54.5 Low back pain; G89.29 Other chronic pain; Z79.891 Long term (current) use of opiate analgesic; Z79.82 Long term (current) use of aspirin; Z79.899 Other long term (current) drug therapy; Z98.890 Other specified postprocedural states; Z87.891 Personal history of nicotine dependence

== ENCOUNTER → 2019-09-30 | Outpatient (CLI) | payer OTHER ==
[~2019-09-30] VITALS: Ht 170.2 cm; Wt 93.7 kg
--- NOTE | ~2019-09-30 | HPC ---
[facility] [address] [place] [address] PAIN MANAGEMENT CONSULTATION Name: DAVE MEJIAS Room #: REG [place]V[facility] Jeni#: [id number] Admission: 09/30/19 Attend Phys: Bert Beard DO Discharge: Date of : 40 Report #: [id number] THIS REPORT FOR: cc: Tee Griggs II, MD, II,Bert Sotomayor MD, DO ~ CC: Bert Manley DATE OF SERVICE: 09/30/2019 CHIEF COMPLAINT: Axial back pain. HISTORY OF PRESENT ILLNESS: As you know, the patient is a pleasant 79-year-old male returning in followup visit with chronic axial back pain. The patient states pain is exacerbated with any type of activity. It improves with rest and relaxation. He has undergone treatment for his facet arthropathy pain with bilateral facet injections at our visit of 05/06/2019. Unfortunately, his symptoms have returned. He is placing his pain today at a level of 5/10. He denies injury or trauma. He returns today to discuss treatment options. ALLERGIES: No known drug allergies. CURRENT MEDICATIONS: Hydrocodone/acetaminophen 5/325 one tab every 4 hours p.r.n. for pain, Zetia 10 mg once a day, nabumetone 500 mg twice a day, escitalopram 20 mg once a day, atorvastatin 80 mg per day, omega-3 fish oil 1200 mg once a day, potassium gluconate 99 mcg per day, omeprazole 20 mg per day, ascorbic acid 500 mg 2 tabs per day, multivitamin 1 tab per day, verapamil 180 mg once a day. SOCIAL HISTORY: The patient denies tobacco, IV or illicit drug use. Admits to at least 1 alcohol beverage per day. He is accompanied by his present in room today. IMAGING: No new imaging available. PQRS: The patient has known osteoarthritic changes of the lumbar spine, right shoulder. No rheumatoid arthritis. He is placing pain today 5/10. He is not a fall risk, has not had a fall in last 3 months, not on blood thinners, but is not treated for hypertension. He is on chronic opioids, has a low opioid addiction potential based on our assessment tool. Pain impact is 38/70. PHYSICAL EXAMINATION: VITAL SIGNS: Blood pressure 118/90, pulse 67, respiratory rate 16 and [facility] [address] [address] PAIN MANAGEMENT CONSULTATION Name: RANDELLDAVE Viry Room #: REG [facility]#: [id number] Admission: 09/30/19 Attend Phys: Bert Beard DO Discharge: Date of : 40 Report #: [id number] unlabored. The patient is 100% on room air. Height 5 feet 7 inches tall, weight 206.6 pounds, BMI calculated at 32.4. GENERAL: Well-developed, well-nourished, well-hydrated 79-year-old male appearing stated age, placing current pain score at 5/10. HEENT: Normocephalic, atraumatic. Pupils equal, round, reactive to light. Extraocular muscles are intact. Speech fluent. The patient deemed a good historian. EXTREMITIES: Show no clubbing, no cyanosis, no edema. MUSCULOSKELETAL: Lower extremity strength equal and symmetrical 5/5, intact to light touch from L1 through S2 dermatomes. Seated straight leg raising negative. Supine straight leg raising negative. Sae's test negative. Modified Gaenslen's positive for axial low back pain. Ankle clonus negative. Babinski is negative. Modified Gaenslen's positive for axial low back pain, no radiation of symptoms. ASSESSMENT: 1. Lumbosacral spondylosis without radiculopathy. 2. Chronic low back pain. 3. Lumbar degeneration. 4. Chronic intractable pain. PLAN: 1. The patient returns today in followup visit with continued axial back pain related to facet arthropathy. As you are aware, the patient was sent to our clinic to address facet arthropathy pain and has successfully completed intra-articular facet injections throughout 2019, at each time with improvement in symptoms. Unfortunately, his symptoms have returned. We recommend moving forward with medial branch nerve blocks to determine if moving towards radiofrequency lesioning would be an appropriate treatment course. The patient is amenable to undergo the procedure. The patient was advised that due to third constitution party payer restrictions, authorization would have to be obtained before the patient could undergo medial branch nerve blocks assuming these are effective treating the patient's pain transiently then moving forward with radiofrequency lesioning would be recommended. We will start with medial branch block #1 once we have achieved authorization. The patient was provided a prescription of hydrocodone/acetaminophen 5/325 60 tablets p.o. q. 4 hours p.r.n. for pain, advised to take only as directed, not to rely on the medication prophylactically. 2. We will see the patient back in followup visit once we have achieved authorization to undergo medial branch nerve block #1. If these are successful in alleviating symptoms, we will have him return the following week to undergo medial branch blocks 2. This will be addressing the L3, L4, L5 medial branch nerves bilaterally. If both are successful treating his axial back pain, then [address] [address] PAIN MANAGEMENT CONSULTATION Name: DAVE MEJIAS Room #: REG CLI Jeni#: [id number] Admission: 09/30/19 Attend Phys: Bert Beard DO Discharge: Date of : 40 Report #: [id number] move forward with radiofrequency lesioning of the medial branch nerves of the lumbar spine. 3. We will see the patient back in followup visit for medial branch blocks bilaterally at the L3, L4, L5 medial branch nerve once authorization has been obtained. The patient was advised to contact our clinic with any questions or concerns as we await this authorization. By: [id number] Bert Beard DO /nt
[2019-09-30 13:48] VITALS: BP 118/90
--- NOTE | 2019-09-30 14:08 | NUR ---
Pain Clinic Assessment: 1. History of Osteoarthritis: RIGHT SHOULDER LOW BACK History of Rheumatoid Arthritis: Not Applicable 2. Height: 5 ft. 7 in. 170.2 cm. Weight: 206.6 lb. oz. 93.713 kg. Patient's BMI: 32.4 3. Vital Signs: BP: 118/90 Pulse: 67 Resp: 16 Temp: 02 Sat: 100 ECG Mon: 4. Pain Intensity: 5 WITH WALKING 5. Fall Risk: Dizziness: N Needs help standing or walking: N Fallen in the last 3 months: N Fall risk comments: 6. Patient on Blood Thinner: None 7. History of Hypertension: N 8. Opioid Therapy greater than 6 weeks: Y Opiate Contract Signed: 02/09/16 9. Risk Assessment Tool Provided: 3 LOW RISK 10. Functional Assessment Tool: 11. Recreational Drug Use: Never Drug Type: Tobacco Use: Former Smoker Tobacco Type: Cigarettes Amount or Packs/day: 2 PACKS How Many Years: 20 Alcohol Use: Yes Frequency: Daily Quant: WINE OR SCOTCH WEEKLY
== END ==
LOC: PAIN 06:52
DX: M47.817 Spondylosis without myelopathy or radiculopathy, lumbosacral region (principal); M51.36 Other intervertebral disc degeneration, lumbar region; G89.29 Other chronic pain; Z79.84 Long term (current) use of oral hypoglycemic drugs; Z79.899 Other long term (current) drug therapy; M19.90 Unspecified osteoarthritis, unspecified site; I10 Essential (primary) hypertension; F11.20 Opioid dependence, uncomplicated

== ENCOUNTER → 2019-10-07 | Outpatient (CLI) | payer OTHER ==
[~2019-10-07] VITALS: Ht 170.2 cm; Wt 94.8 kg
[2019-10-07 08:09] VITALS: BP 150/87
--- NOTE | 2019-10-07 08:14 | NUR ---
Pain Clinic Assessment: 1. History of Osteoarthritis: RIGHT SHOULDER LOW BACK History of Rheumatoid Arthritis: Not Applicable 2. Height: 5 ft. 7 in. 170.2 cm. Weight: 209.0 lb. oz. 94.802 kg. Patient's BMI: 32.7 3. Vital Signs: BP: 150/87 Pulse: 69 Resp: 18 Temp: 02 Sat: 94 ECG Mon: 4. Pain Intensity: 4 5. Fall Risk: Dizziness: N Needs help standing or walking: N Fallen in the last 3 months: N Fall risk comments: 6. Patient on Blood Thinner: None 7. History of Hypertension: N 8. Opioid Therapy greater than 6 weeks: Y Opiate Contract Signed: 02/09/16 9. Risk Assessment Tool Provided: 3 LOW RISK 10. Functional Assessment Tool: 11. Recreational Drug Use: Never Drug Type: Tobacco Use: Former Smoker Tobacco Type: Amount or Packs/day: How Many Years: Alcohol Use: Yes Frequency: Daily Quant: 1
--- NOTE | 2019-10-08 12:44 | HPC ---
[facility] [place] [address] [place] [address] PAIN MANAGEMENT CONSULTATION Name: DAVE MEJIAS Room #: REG CHEVY IbarraAngellaDarinelAngella#: [id number] Admission: 10/07/19 Attend Phys: Bert Beard DO Discharge: Date of : 40 Report #: [id number] THIS REPORT FOR: cc: Tee Griggs II, MD, II, Lawrence MD Johnson, James E. DO ~ DATE OF SERVICE: 10/07/2019 REFERRING PHYSICIAN: Sarah Manley NP. CHIEF COMPLAINT: Axial back pain. HISTORY OF PRESENT ILLNESS: As you know, the patient is a 79-year-old male with longstanding history of axial back pain issues. He was referred back to our service to discuss treatment for facet arthropathy pain. He has undergone intra-articular facet injections with benefit, but unfortunately, the symptoms recurred quite quickly. He was established today's appointment to begin medial branch nerve blocks with plans to radiofrequency lesion of the L3, L4, L5 medial branches assuming efficacy with the blocks. He returns today for the first in the series of blocks. He is placing pain today 10/30. ALLERGIES: No known drug allergies. CURRENT MEDICATIONS: Zetia, nabumetone, hydrocodone, aspirin, escitalopram, atorvastatin, omega-3 fish oil, potassium gluconate, omeprazole, ascorbic acid, multivitamin, and verapamil. SOCIAL HISTORY: The patient denies tobacco, IV or illicit drug use. Admits to one alcoholic beverage per day. He is accompanied by his present in room today. IMAGING: No new imaging available. PQRS: The patient has known arthritic changes of the lumbar spine and right shoulder. No rheumatoid arthritis. He is placing pain intensity 4/10. He is not a fall risk, has not had a fall in the last 3 months. He is not on blood thinners, nor is he reporting a treatment for hypertension. He is on chronic opioids and has a low opioid addiction potential. Pain impact score is 38/70, that equals moderate interference of daily activities secondary to pain. PHYSICAL EXAMINATION: VITAL SIGNS: Blood pressure 150/87, pulse 69, respiratory rate 18 and unlabored. The patient is 94% on room air. Height 5 feet 7 inches tall, weight 209 pounds, BMI calculated 32.7. [facility] [address] [place] [address] PAIN MANAGEMENT CONSULTATION Name: DAVE MEJIAS Room #: REG [facility]#: [id number] Admission: 10/07/19 Attend Phys: Bert Beard DO Discharge: Date of : 40 Report #: [id number] GENERAL: Well-developed, well-nourished, well-hydrated exogenously obese 79-year-old male appearing stated age, pain is rated today 4/10. HEENT: Normocephalic, atraumatic. Pupils equal, round, reactive to light. Extraocular muscles are intact. Speech fluent. EXTREMITIES: Show no clubbing, no cyanosis, and no edema. MUSCULOSKELETAL: Lower extremity strength remains symmetrical 5/5. Muscle bulk and tone is equal and symmetrical in comparing left lower extremity to right. Seated straight leg raising remains negative. Supine straight leg raising negative. There are well-healed surgical scars. Sae's test negative. Modified Gaenslen's positive for axial low back pain. Lumbar provocation testing is met with increasing pain, specifically with extension and rotation of the lumbar spine. ASSESSMENT: 1. Lumbosacral spondylosis without radicular symptoms. 2. Chronic low back pain. 3. Chronic intractable pain. PLAN: 1. The patient returns today in followup visit to undergo bilateral L3, L4, L5 medial branch nerve blocks in preparation for possible radiofrequency lesioning. The patient has done well with intra-articular facet injections, but unfortunately his symptoms continued to return. The fact that he is not receiving long-term benefit with these injections would indicate that moving towards more aggressive treatment option may be beneficial. He was established today's appointment to undergo medial branch nerve blocks at L3, L4, L5. If these are successful, then moving forward with radiofrequency lesioning in the very near future. The patient has been advised risks and benefits of the procedure, states understood and wished to proceed. 2. The patient was provided refill prescription of his nabumetone 500 mg dose 1 tab p.o. t.i.d. I have sent the patient 90 tablets with 2 refills, 3 months' worth of medication. The patient was advised not to take any other anti-inflammatory medication with this therapy. 3. We will see the patient back in followup visit next week, assuming he has good efficacy with the medial branch blocks today in the prescribed amount of time, we would then move forward with the second in the series of procedures with plans to move towards radiofrequency lesioning assuming the second injections provide similar benefit. PROCEDURE NOTE DESCRIPTION OF PROCEDURE: Bilateral L3, L4, L5 medial branch nerve blocks under fluoroscopy. This is the first of 2 diagnostic medial branch blocks on the bilateral side that the patient is undergoing. [facility] [address] [place] [address] PAIN MANAGEMENT CONSULTATION Name: DAVE MEJIAS [facility] [id number] Admission: 10/07/19 Attend Phys: Bert BairesAngella Chirag, Discharge: Date of : 40 Report #: [id number] After obtaining written consent, the patient was taken back to the fluoroscopy suite and placed in a prone position on the fluoroscopy table with a pillow under the abdomen to decrease the lumbar lordosis. The skin overlying the lumbosacral area was prepped and draped in an aseptic fashion. The L4 transverse process corresponding the L3 medial branch nerve, L5 transverse process corresponding the L4 medial branch nerve on the bilateral side was visualized under AP fluoroscopy. The skin and subcutaneous tissue overlying the target site(s) of injection was anesthetized using 2 mL of 1% lidocaine. A 22-guage 3-1/2 inch spinal needle with a bent tip was advanced under fluoroscopic guidance using a superior to inferior and lateral to medial approach to the dorsal, superior and medial aspect of the base of the transverse process(es). The needles were then directed ventral, medial and caudad to reach the target location(s). An oblique view facilitated needle placement with properly positioned needles(s) in the middle of the "eye" of the Franky dog for the medial branch block(s). At each site the needle(s) rested on periosteum. After negative aspiration for heme or CSF, 0.2 mL of Omnipaque dye was injected at each site under live fluoroscopy, demonstrating absence of vascular uptake. After negative aspiration for heme or CSF, 0.5 mL of bupivacaine 0.5% was slowly injected at each site to avoid forcing the solution away from the target points(s). The needle(s) were then removed. The L5 dorsal ramus block on the right and left sides were performed using a slightly oblique approach under fluoroscopic guidance, placing the needle within the groove between the sacral site and the superior articular process of S1. The needle rested on periosteum. After negative aspiration for heme or CSF, 0.2 mL of Omnipaque dye was injected at under live fluoroscopy, demonstrating absence of vascular uptake. After negative aspiration for heme or CSF, 0.5 mL of bupivacaine 0.5% was slowly injected to avoid forcing the solution away from the target point. The needle was then removed. Sterile bandages were placed over the injection site. There were no apparent complications. The patient tolerated the procedure well and was carefully escorted to the recovery room in stable condition. The VAS was 4/10 before the procedure and 1/10 at 10 minutes after the procedure. After meeting discharge criteria, the patient was discharged home. <ELECTRONICALLY SIGNED> By: Bert Beard DO 10/08/19 1244 [id number] Bert Beard DO /nt
== END | disposition home or self-care (01) ==
LOC: PAIN 06:41
DX: M47.816 Spondylosis without myelopathy or radiculopathy, lumbar region (principal); M54.5 Low back pain; G89.29 Other chronic pain; M19.90 Unspecified osteoarthritis, unspecified site; Z98.890 Other specified postprocedural states; Z79.899 Other long term (current) drug therapy; Z87.891 Personal history of nicotine dependence; Z79.891 Long term (current) use of opiate analgesic

== ENCOUNTER → 2019-10-14 | Outpatient (CLI) | payer OTHER ==
[~2019-10-14] VITALS: Ht 170.2 cm; Wt 93.7 kg
[2019-10-14 09:08] VITALS: BP 151/71
--- NOTE | 2019-10-14 09:33 | NUR ---
Pain Clinic Assessment: 1. History of Osteoarthritis: RIGHT SHOULDER LOW BACK History of Rheumatoid Arthritis: Not Applicable 2. Height: 5 ft. 7 in. 170.2 cm. Weight: 206.6 lb. oz. 93.713 kg. Patient's BMI: 32.4 3. Vital Signs: BP: 151/71 Pulse: 82 Resp: 18 Temp: 02 Sat: 97 ECG Mon: 4. Pain Intensity: 1 TODAY 5. Fall Risk: Dizziness: N Needs help standing or walking: N Fallen in the last 3 months: N Fall risk comments: 6. Patient on Blood Thinner: None 7. History of Hypertension: Y 8. Opioid Therapy greater than 6 weeks: Y Opiate Contract Signed: 02/09/16 9. Risk Assessment Tool Provided: 3 LOW RISK 10. Functional Assessment Tool: 11. Recreational Drug Use: Never Drug Type: Tobacco Use: Former Smoker Tobacco Type: Amount or Packs/day: How Many Years: Alcohol Use: Yes Frequency: Quant:
--- NOTE | 2019-10-21 09:15 | HPC ---
[facility] [place] [address] PAIN MANAGEMENT CONSULTATION Name: DAVE MEJIAS Room #: REG CHEVY Jeni#: [id number] Admission: 10/14/19 Attend Phys: Bert Beard DO Discharge: Date of : 40 Report #: [id number] THIS REPORT FOR: cc: Tee Griggs II, MD, II,Bert Sotomayor MD, DO ~ DATE OF SERVICE: 10/14/2019 REFERRING PHYSICIAN: Dr. Tee Griggs. REFERRING NURSE PRACTITIONER: Sarah Manley CHIEF COMPLAINT: Axial back pain. HISTORY OF PRESENT ILLNESS: As you know, the patient is a 79-year-old male with longstanding history of axial back pain issues. He was referred back to our clinic to discuss medial branch nerve blocks and radiofrequency lesioning to address axial back pain. The patient underwent medial branch blocks of the L3, L4, L5 medial branches bilaterally at our visit of 10/07/2019. The patient reports he received excellent benefit with the blocks providing near 95% improvement in overall pain, doing his normal activities, which consistently caused his axial back pain to exacerbate. He placed his pain score as low as 0.5/10 during the time of the medial branch block effects. He had a slow and progressive return of symptoms typical for medial branch blocks. He returns today in followup visit to undergo the second in series of medial branch blocks. If these are successful as the previous, then we will move forward with radiofrequency lesioning of medial branch nerves of the lumbar spine. The patient reports pain today at a level of up to 3-4/10 depending on activity. ALLERGIES: No known drug allergies. CURRENT MEDICATIONS: Zetia, nabumetone, hydrocodone, aspirin, estradiol, atorvastatin, omega-3 fish oil, potassium gluconate, omeprazole, ascorbic acid, multivitamin and verapamil. SOCIAL HISTORY: The patient denies tobacco, IV or illicit drug use. Admits to 1 alcohol beverage per day. He is unaccompanied today. IMAGING: No new imaging available. PQRS: The patient has known arthritic changes of the lumbar spine, right shoulder. No rheumatoid arthritis. He is placing pain intensity up to 3-4/10 depending on activities, not a fall risk, has not had a fall in last 3 months. He is not on blood thinners, but is treated for hypertension. He is on chronic [address] [address] PAIN MANAGEMENT CONSULTATION Name: DAVE MEJIAS Room #: REG [facility] Jeni#: [id number] Admission: 10/14/19 Attend Phys: Bert Beard DO Discharge: Date of : 40 Report #: [id number] opioids and has a low opioid addiction potential based on our assessment tool. Pain impact today is at 38/70, moderate interference of daily activities secondary to pain. PHYSICAL EXAMINATION: VITAL SIGNS: Blood pressure 151/71, pulse 82, respiratory rate 18 and unlabored. The patient is 97% on room air. Height 5 feet 7 inches tall, weight 206.6 pounds, BMI calculated 32.4. GENERAL: Well-developed, well-nourished, well-hydrated 79-year-old male appearing stated age, pain is rated today up to 3-4/10. HEENT: Normocephalic, atraumatic. Pupils equal, round and reactive to light. EXTREMITIES: Show no clubbing, no cyanosis, no edema. MUSCULOSKELETAL: Lower extremity strength is symmetrical again today 5/5. Muscle bulk and tone is equal and symmetrical in the lower extremities. Seated straight leg raising negative. Supine straight leg raising is negative. There are well-healed surgical scars over the lumbar region midline. Sae's test negative. Modified Gaenslen's positive for axial low back pain with rotation, lateral, flexion and extension. ASSESSMENT: 1. Lumbosacral spondylosis without radicular symptoms. 2. Chronic low back pain. 3. Facet arthropathy of the lumbar spine. 4. Chronic intractable pain. PLAN: 1. The patient returns today in followup visit to undergo medial branch blocks to address the bilateral L3, L4, L5 medial branch nerves of the lumbar spine. As indicated in the history of present illness, the patient did very well with the initial block reducing his pain down to 0.5/10 for a protracted period of time. Unfortunately, his symptoms did return, which is typical for these medial branch blocks. Given the success of the initial diagnostic procedure, we have planned the patient to undergo the diagnostic procedure again today. If again he sees good efficacy, then move forward with radiofrequency lesioning of the medial branch nerves of the lumbar spine. The patient has been advised risks and benefits of this procedure, states understood and wished to proceed. 2. No medication changes made at today's visit. The patient will continue current medical therapy as prior prescribed. 3. We will see the patient back in followup visit to undergo radiofrequency lesioning of the medial branch nerves on the right side to address the L3, L4, L5 medial branch nerves respectively. Follow then 2 weeks later by the left L3, L4, L5 medial branches. DESCRIPTION OF PROCEDURE: Bilateral L3, L4, L5 medial branch nerve blocks under fluoroscopy. [address] [address] PAIN MANAGEMENT CONSULTATION Name: DAVE MEJIAS Room #: REG CHEVY Ngo#: [id number] Admission: 10/14/19 Attend Phys: eBrt Beard DO Discharge: Date of : 40 Report #: [id number] This is the second of 2 diagnostic medial branch blocks on the right and left sides that the patient is undergoing. After obtaining written consent, the patient was taken back to the fluoroscopy suite and placed in a prone position on the fluoroscopy table with a pillow under the abdomen to decrease the lumbar lordosis. The skin overlying the lumbosacral area was prepped and draped in an aseptic fashion. The L4 transverse process corresponding the L3 medial branch nerve L5, transverse process corresponding the L4 medial branch nerve side was visualized under AP fluoroscopy. The skin and subcutaneous tissue overlying the target sites of injection right and left sides were anesthetized using 2 mL of 1% lidocaine. A #22 gauge 3-1/2 inch spinal needle with a bent tip was advanced under fluoroscopic guidance using a superior to inferior and lateral to medial approach to the dorsal, superior and medial aspect of the base of the transverse processes. The needles were then directed ventral, medial and caudad to reach the target locations. An oblique view facilitated needle placement with properly positioned needless in the middle of the "eye" of the Franky dog for the medial branch blocks. At each site the needles rested on periosteum. After negative aspiration for heme or CSF, 0 mL of Omnipaque dye was injected at each site under live fluoroscopy, demonstrating absence of vascular uptake. After negative aspiration for heme or CSF, 0.5 mL of bupivacaine 0.5% was slowly injected at each site to avoid forcing the solution away from the target points. The needles were then removed. The L5 dorsal ramus block on the right and left sides were performed using a slightly oblique approach under fluoroscopic guidance, placing the needle within the groove between the sacral site and the superior articular process of S1. The needle rested on periosteum. After negative aspiration for heme or CSF, 0 mL of Omnipaque dye was injected at under live fluoroscopy, demonstrating absence of vascular uptake. After negative aspiration for heme or CSF, 0.5 mL of bupivacaine 0.5% was slowly injected to avoid forcing the solution away from the target point. The needle was then removed. Sterile bandages were placed over the injection site. There were no apparent complications. The patient tolerated the procedure well and was carefully escorted to the recovery room in stable condition. The VAS was 3-4/10 before the procedure and 0/10, 10 minutes after the procedure. After meeting discharge criteria, the patient was discharged home. <ELECTRONICALLY SIGNED> By: Bert Beard DO 10/21/19 0915 [id number] Bert Beard DO /nt
== END | disposition home or self-care (01) ==
LOC: PAIN 06:42
DX: M47.817 Spondylosis without myelopathy or radiculopathy, lumbosacral region (principal); M47.816 Spondylosis without myelopathy or radiculopathy, lumbar region; G89.29 Other chronic pain; M54.5 Low back pain; I10 Essential (primary) hypertension; Z98.890 Other specified postprocedural states; Z79.899 Other long term (current) drug therapy; Z79.891 Long term (current) use of opiate analgesic

== ENCOUNTER → 2020-01-06 | Outpatient (CLI) | payer OTHER ==
[~2020-01-06] VITALS: Ht 170.2 cm; Wt 91.5 kg
[2020-01-06 10:04] VITALS: BP 136/81
--- NOTE | 2020-01-06 10:14 | NUR ---
Pain Clinic Assessment: 1. History of Osteoarthritis: RIGHT SHOULDER LOW BACK History of Rheumatoid Arthritis: Not Applicable 2. Height: 5 ft. 7 in. 170.2 cm. Weight: 201.8 lb. oz. 91.536 kg. Patient's BMI: 31.6 3. Vital Signs: BP: 136/81 Pulse: 70 Resp: 16 Temp: 02 Sat: 98 ECG Mon: 4. Pain Intensity: 0.5-1 TODAY 5. Fall Risk: Dizziness: N Needs help standing or walking: N Fallen in the last 3 months: N Fall risk comments: 6. Patient on Blood Thinner: None 7. History of Hypertension: Y 8. Opioid Therapy greater than 6 weeks: Y Opiate Contract Signed: 02/09/16 9. Risk Assessment Tool Provided: 3 LOW RISK 10. Functional Assessment Tool: 11. Recreational Drug Use: Never Drug Type: Tobacco Use: Former Smoker Tobacco Type: Amount or Packs/day: How Many Years: Alcohol Use: Yes Frequency: Quant:
--- NOTE | 2020-01-13 09:14 | HPC ---
[facility] [place] [address] PAIN MANAGEMENT CONSULTATION Name: DAVE MEJIAS Room #: REG HCEVY WalkerAngella#: [id number] Admission: 01/06/20 Attend Phys: Bert Beard DO Discharge: Date of : 40 Report #: [id number] THIS REPORT FOR: cc: Tee Griggs II, MD, II,Bert Sotomayor MD, DO ~ DATE OF SERVICE: 01/06/2020 REFERRING PHYSICIAN: Dr. Tee Griggs. CHIEF COMPLAINT: Axial back pain. HISTORY OF PRESENT ILLNESS: As you know, the patient is a 79-year-old male who has successfully completed 2 series of medial branch nerve blocks with good efficacy to address facet arthropathy. He returns today to begin the radiofrequency process on the right side. We received authorization for the patient to undergo right L3, L4, L5 radiofrequency lesioning in the medial branch nerves today. The patient is placing his current pain score at 5/10 when active. When lying down, 1/10. He returns today to begin the radiofrequency lesioning process of the medial branch nerves of the lower lumbar spine. ALLERGIES: No known drug allergies. CURRENT MEDICATIONS: Zetia, nabumetone, hydrocodone, aspirin, estradiol, atorvastatin, omega-3 fish oil, potassium gluconate, omeprazole, ascorbic acid, multivitamin, and verapamil. SOCIAL HISTORY: The patient denies tobacco, alcohol, IV or illicit drug use. He is accompanied by his present in the room today. IMAGING: No new imaging available. PQRS: The patient has known arthritic changes of the lumbar spine, right shoulder. No rheumatoid arthritis. He is placing pain intensity up to 5/10. He is not a fall risk, has not had a fall in last 3 months. He is not on blood thinners, but is treated for hypertension. He is on chronic opioids, but has a low opioid addiction potential based on our assessment tool. Pain impact is 38/70, moderate interference of daily activities secondary to pain. PHYSICAL EXAMINATION: VITAL SIGNS: Blood pressure 136/81, pulse 70, respiratory rate 16 and unlabored. The patient is 98% on room air. Height 5 feet 7 inches tall, weight 201.8 pounds, BMI calculated 31.6. GENERAL: Well-developed, well-nourished, well-hydrated 79-year-old male appearing stated age, pain is rated up to 5/[address] [address] PAIN MANAGEMENT CONSULTATION Name: DAVE MEJIAS Room #: REG CLKristen Jeni#: [id number] Admission: 01/06/20 Attend Phys: Bert Beard DO Discharge: Date of : 40 Report #: [id number] HEENT: Normocephalic, atraumatic. Pupils equal, round and reactive. EXTREMITIES: Show no clubbing, no cyanosis, no edema. MUSCULOSKELETAL: Lower extremity strength is symmetrical today 5/5. Muscle bulk and tone equal and symmetrical in lower extremities. Seated straight leg raising negative. Supine straight leg raising negative. Modified Gaenslen positive for axial low back pain. Ankle clonus negative. Babinski is negative. ASSESSMENT: 1. Lumbosacral spondylosis without radicular symptoms. 2. Facet arthropathy of the lumbar spine. 3. Chronic low back pain. 4. Chronic intractable pain. PLAN: 1. The patient returns today in followup visit having successfully completed medial branch blocks with good efficacy for a prescribed period of time consistent with facet arthropathy pain mediated by medial branch nerve. He returns today with authorization to undergo right L3, L4, L5 medial branch nerve radiofrequency lesioning with plans to move forward with left in 2 weeks. He indicates no new injury or trauma that may have led to continuation of symptoms. The patient has been advised risks and benefits of the proposed radiofrequency lesioning. These risks include but are not necessarily limited to bleeding, bruising, infection, worsening pain, no relief of pain, also risk of temporary or permanent muscle weakness, inadvertent nerve damage, possible paralysis and . The patient states understood and wished to proceed. 2. The patient was provided refill prescription of [place] 5/325 one tab every 8 hours p.r.n. for pain. I have given the patient #60 tablets, advised to take only when pain is intolerable, not to rely on the medication prophylactically. Prescription was sent via E-scribe to local pharmacy. 3. We will begin the authorization process for the patient to undergo left L3, L4, L5 radiofrequency lesioning in 2 weeks. We are hopeful the patient will receive this authorization and we can complete the process of radiofrequency lesioning so that the patient can begin to return to his activities of daily living. We will keep the patient apprised of our progress in obtaining this authorization. PROCEDURE NOTE: Right L3, L4, L5 medial branch radiofrequency lesioning. The procedure was explained, informed consent was obtained from the patient. The patient was informed of the risks of the procedure including infection, bleeding, nerve damage, failure to produce pain relief and postoperative discomfort lasting for several weeks. The patient agrees to undergo the procedure today. Consent was signed. The patient was then taken to the fluoroscopy suite, placed in prone position [address] [address] PAIN MANAGEMENT CONSULTATION Name: DAVE MEJIAS Room #: REG CLI Jeni#: [id number] Admission: 01/06/20 Attend Phys: Bert Beard DO Discharge: Date of : 40 Report #: [id number] with pillow under abdomen to decrease lumbar lordosis. Skin overlying lumbosacral area then prepped and draped in aseptic fashion. An AP imaging of the lumbar spine was used to identify the L2 through L5 vertebral bodies and the sacral ala. The target locations on the right side of the L4 transverse process corresponding the L3 medial branch nerve and the L5 transverse process corresponding the L4 medial branch nerve were established. Using a 25-gauge 1-1/4 inch needle, skin wheals were placed at the junction of the transverse process and the respective superior articular process using 1 mL of 1% lidocaine. We were careful only to anesthetize the skin and not the deep tissue. The radiofrequency lesioning needles were then advanced under fluoroscopic guidance using a superior to inferior, lateral to medial approach to the dorsal superior and medial aspect of the base of the transverse processes. [place] were then directed caudad to reach the target location. An oblique view facilitated needle placement with properly positioned needles within the middle of the "eye" of the Franky dog. At each site, needles rested on periosteum. Touching bone initially assured the needles were not placed too deeply. Radiofrequency lesioning of the L5 medial branch nerve on the right side was performed using a superior to inferior, lateral to medial approach, placing the needle between the groove, between the sacral ala and the superior articular process of S1. Needle rested on periosteum. Stimulation was performed at each level once the cannulas were in position. Sensory stimulation was performed at 0.2, 0.1, 0.1 with impedance of 255, 294, and 340 at 50 Hz for the L3, L4, L5 medial branch nerves respectively. Good stimulation of the lumbar and buttock region was elicited indicating correct alignment with the posterior primary ramus. Absence of motor fasciculation of the lower extremities was noted at 3 volts 2 Hz stimulation during testing of the L3, L4, L5 medial branch nerves respectively. Following this affirmation of dissociation between sensory and motor stimulation, negative aspiration was noted to be at all levels for heme or cerebrospinal fluid. Next, 1 mL of bupivacaine 0.5% was injected. After a 90-second delay, lesions were performed at a temperature of 80 degrees Celsius for 90 seconds. After the needle tips had cooled, 1 mL of a solution containing 1 mL, 40 mg per mL, 40 mg total triamcinolone and 3 mL bupivacaine 0.5% was injected at each site. [place] were retracted approximately half way, flushed with 1 mL of 1% lidocaine and then removed. Sterile bandage placed over each of the injection sites. The patient was noted to be able to move all 4 extremities following procedure. The patient tolerated procedure well, carefully [place] [address] PAIN MANAGEMENT CONSULTATION Name: DAVE MEJIAS Room #: REG CHEVY Ngo#: [id number] Admission: 01/06/20 Attend Phys: Bert Beard DO Discharge: Date of : 40 Report #: [id number] stable condition. No apparent complications. After meeting discharge criteria, the patient discharged home. <ELECTRONICALLY SIGNED> By: Bert Beard DO 01/13/20 0914 [id number] Bert Beard DO /nt
== END | disposition home or self-care (01) ==
LOC: PAIN 10-28 09:31
PROVIDERS: ATTEND Anesthesiology Pain Medicine
DX: M47.816 Spondylosis without myelopathy or radiculopathy, lumbar region (principal); M54.5 Low back pain; G89.29 Other chronic pain; I10 Essential (primary) hypertension; Z87.891 Personal history of nicotine dependence; Z79.891 Long term (current) use of opiate analgesic; Z98.890 Other specified postprocedural states; Z79.899 Other long term (current) drug therapy

== ENCOUNTER → 2020-01-27 | Outpatient (CLI) | payer OTHER ==
[~2020-01-27] VITALS: Ht 170.2 cm; Wt 90.1 kg
[2020-01-27 10:07] VITALS: BP 142/81
--- NOTE | 2020-01-27 10:18 | NUR ---
Pain Clinic Assessment: 1. History of Osteoarthritis: RIGHT SHOULDER LOW BACK History of Rheumatoid Arthritis: Not Applicable 2. Height: 5 ft. 7 in. 170.2 cm. Weight: 198.6 lb. oz. 90.084 kg. Patient's BMI: 31.1 3. Vital Signs: BP: 142/81 Pulse: 72 Resp: 14 Temp: 02 Sat: 99 ECG Mon: 4. Pain Intensity: 1 5. Fall Risk: Dizziness: N Needs help standing or walking: N Fallen in the last 3 months: N Fall risk comments: 6. Patient on Blood Thinner: None 7. History of Hypertension: Y 8. Opioid Therapy greater than 6 weeks: Y Opiate Contract Signed: 02/09/16 9. Risk Assessment Tool Provided: 3 LOW RISK 10. Functional Assessment Tool: 11. Recreational Drug Use: Never Drug Type: Tobacco Use: Former Smoker Tobacco Type: Amount or Packs/day: How Many Years: Alcohol Use: Yes Frequency: Quant:
--- NOTE | 2020-02-03 14:07 | HPC ---
[facility] [place] [address] PAIN MANAGEMENT CONSULTATION Name: DAVE MEJIAS Room #: REG CHEVY Jeni#: [id number] Admission: 01/27/20 Attend Phys: Bert Beard DO Discharge: Date of : 40 Report #: [id number] THIS REPORT FOR: cc: Tee Griggs II, MD, II,Bert Sotomayor MD, DO ~ DATE OF SERVICE: 01/27/2020 CHIEF COMPLAINT: Axial back pain. HISTORY OF PRESENT ILLNESS: As you know, the patient is a very pleasant 80-year-old male who now returns today in followup visit for the second of the radiofrequency lesioning procedures. We completed at our last visit radiofrequency lesioning of the right side. He returns now to undergo left L3, L4, L5 medial branch radiofrequency lesioning. He notes about 70% improvement in overall pain. He continues to experience left low back pain. He returns today to address with radiofrequency lesioning. The patient denies new injury, trauma or any changes in medical history since our last visit. He is now placing pain score around 1/10. ALLERGIES: No known drug allergies. CURRENT MEDICATIONS: Zetia, nabumetone, hydrocodone, aspirin, estradiol, atorvastatin, omega-3 fish oil, potassium gluconate, omeprazole, ascorbic acid, multivitamin, and verapamil. SOCIAL HISTORY: The patient denies tobacco, alcohol, IV or illicit drug use. He is retired, accompanied by his present in room today. IMAGING: No new imaging available. PQRS: The patient has known arthritic changes of the lumbar spine and right shoulder. No rheumatoid arthritis. Pain today is rated at 1/10. He is not a fall risk nor has he had a fall in last 3 months. He is not on blood thinners, but is treated for hypertension. He is on chronic opioids and has a low opioid addiction potential based on our assessment tool. Pain impact 38 of 70, moderate interference of daily activities secondary to pain. PHYSICAL EXAMINATION: VITAL SIGNS: Blood pressure 142/81, pulse 72, respiratory rate 14 and unlabored. The patient is 99% on room air. Height 5 feet 7 inches tall, weight 198.6 pounds and BMI calculated 31.1. GENERAL: Well-developed, well-nourished, well-hydrated 80-year-old male, appearing stated age, pain is rated today 1/10. HEENT: Normocephalic, atraumatic. Pupils equal, round and reactive. Speech [address] [address] PAIN MANAGEMENT CONSULTATION Name: DAVE MEJIAS Room #: [id number] Admission: 01/27/20 Attend Phys: Bert Beard DO Discharge: Date of : 40 Report #: [id number] fluent. EXTREMITIES: Show no clubbing, no cyanosis, no edema. MUSCULOSKELETAL: Lower extremity strength remains symmetrical 5/5. He is intact to light touch from L1 through S2 dermatomes. Seated straight leg raising negative. Supine straight leg raising negative. Modified Gaenslen's positive for left low back pain, negative right. ASSESSMENT: 1. Lumbosacral spondylosis without radicular symptoms. 2. Facet arthropathy of the lumbar spine. 3. Chronic low back pain. 4. Chronic intractable pain. PLAN: 1. The patient returns today in followup visit for the second in the series of the staged radiofrequency lesioning procedure. He has done very well with the right L3, L4, L5 radiofrequency lesioning performed 01/06/2020. He has had greater than 70% improvement in overall pain. He is now placing pain score 1/10, which is involving mainly just the left lower back. He returns today in followup visit to undergo the left L3, L4, L5 RFA. The patient has been advised risks and benefits of procedure, states understood and wished to proceed. 2. The patient will be sent for physical therapy, will begin 3 sessions a week for 6 weeks. We have requested that the physical therapy group provide the patient with core strengthening options to help alleviate some of the patient's weakened back musculature, which will improve his overall pain. We want the patient to undergo physical therapy in a formalized fashion initially and then transition to his home ____ once he has learned appropriate techniques to protect his back, but also provide core strengthening. Prescription was provided to the patient in written form. 3. No medication changes made at today's visit. The patient will continue current medical therapy as previously prescribed. 4. We will see the patient back in followup visit on an as needed basis. PROCEDURE NOTE: DESCRIPTION OF PROCEDURE: Left L3, L4, L5 medial branch radiofrequency lesioning under fluoroscopic guidance. The procedure was explained. Informed consent was obtained from the patient. The patient was informed of the risks of procedure including infection, bleeding, nerve damage, failure to produce pain relief and postoperative discomfort lasting for several weeks. The patient agrees to undergo the procedure today. Consent was signed. The patient was then taken to the fluoroscopy suite, placed in prone position with pillow under abdomen to decrease lumbar lordosis. Skin overlying lumbosacral area then prepped and draped in aseptic fashion. [facility] imaging of the [address] [address] PAIN MANAGEMENT CONSULTATION Name: DAVE MEJIAS Room #: REG CLKristen Ngo#: [id number] Admission: 01/27/20 Attend Phys: Bert Beard DO Discharge: Date of : 40 Report #: [id number] lumbar spine was used to identify the L2 through L5 vertebral bodies and the sacral ala. The target locations on the left side of the L4 transverse process corresponding the L3 medial branch nerve and the L5 transverse process corresponding the L4 medial branch nerve were established. Using a 25-gauge 1-1/4 inch needle, skin wheals were placed at the junction of the transverse process and the respective superior articular process using 1 mL of 1% lidocaine. We were careful to anesthetize skin and not the deep tissue. Radiofrequency lesioning needles were then advanced under fluoroscopic guidance using a superior, inferior, lateral to medial approach to the dorsal superior and medial aspect of the base of transverse processes. [place] were then directed caudad to reach the target locations. An oblique view facilitated needle placement with properly positioned needles within the middle of the "eye" of the Franky dog. At each site, needles rested on periosteum. Touching the bone initially assured the needles were not placed too deeply. Radiofrequency lesioning of the L5 medial branch nerve on the left side was performed using a superior to inferior lateral to medial approach, placing the needle between the groove between the sacral ala and the superior articular process of S1. Needle rested on periosteum. Stimulation was performed at each level once the cannulas were in position. Sensory stimulation was performed at 0.3, 0.3 and 0.2 with impedance of 371, 494 and 416 at 50 Hz for the L3, L4, L5 medial branch nerves on the left side respectively. Good stimulation of the lumbar buttock region was elicited indicating correct alignment with the posterior primary ramus. Absence of motor fasciculation of the lower extremities was noted at 3 volts 2 Hz stimulation during testing of the L3, L4 and L5 medial branch nerves respectively. Following this affirmation of disassociation between sensory and motor stimulation, negative aspiration was noted at all levels for heme or cerebrospinal fluid. Next, 1 mL bupivacaine 0.5% was injected at each site. After a 90-second delay, lesions were performed at a temperature of 80 degrees Celsius for a total of 90 seconds. After the needle tips cooled, 1 mL of solution containing 1 mL 40 mg per mL, 40 mg total triamcinolone along with 3 mL bupivacaine 0.5% was injected at each site. [place] were then retracted approximately half way, flushed with 1 mL of 1% lidocaine, then removed. Sterile bandage placed over injection sites. The patient was noted to be able to move all 4 extremities purposefully after procedure. The patient tolerated procedure well, carefully escorted to recovery room in stable condition. No apparent complication. After meeting discharge criteria, the patient discharged home. <ELECTRONICALLY SIGNED> By: Bert Beard DO 02/03/20 1407 [id number] 1342 Bert Beard DO /nt
== END | disposition home or self-care (01) ==
LOC: PAIN 06:49
PROVIDERS: ATTEND Anesthesiology Pain Medicine
DX: M47.817 Spondylosis without myelopathy or radiculopathy, lumbosacral region (principal); M47.816 Spondylosis without myelopathy or radiculopathy, lumbar region; M54.5 Low back pain; G89.29 Other chronic pain; M19.011 Primary osteoarthritis, right shoulder; I10 Essential (primary) hypertension; Z98.890 Other specified postprocedural states; Z79.899 Other long term (current) drug therapy

== ENCOUNTER → 2021-06-07 | Outpatient (CLI) | payer MEDICARE ==
[~2021-06-07] VITALS: Ht 170.2 cm; Wt 96.3 kg
[~2021-06-07] MED LIST changes: +NORCO5 PO; +POTASSIUM GLUC500 MG PO; +VITAMIN B12-FO1 EAC1 PO
[2021-06-07 11:09] VITALS: BP 126/74
--- NOTE | 2021-06-07 11:47 | NUR ---
Pain Clinic Assessment: 1. History of Osteoarthritis: RIGHT SHOULDER LOW BACK History of Rheumatoid Arthritis: Not Applicable 2. Height: 5 ft. 7 in. 170.2 cm. Weight: 212.4 lb. oz. 96.344 kg. Patient's BMI: 33.3 3. Vital Signs: BP: 126/74 Pulse: 79 Resp: 16 Temp: 02 Sat: 96 ECG Mon: 4. Pain Intensity: movement 8-9 rest 1 5. Fall Risk: Dizziness: N Needs help standing or walking: N Fallen in the last 3 months: N Fall risk comments: 6. Patient on Blood Thinner: None 7. History of Hypertension: Y 8. Opioid Therapy greater than 6 weeks: Y Opiate Contract Signed: 02/09/16 9. Risk Assessment Tool Provided: 3 LOW RISK 10. Functional Assessment Tool: 11. Recreational Drug Use: Never Drug Type: Tobacco Use: Former Smoker Tobacco Type: Amount or Packs/day: How Many Years: Alcohol Use: Yes Frequency: Quant:
--- NOTE | 2021-06-08 11:23 | HPC ---
[facility] [address] [place] [address] PAIN MANAGEMENT CONSULTATION Name: DAVE MEJIAS Room #: REG CHEVY Jeni#: [id number] Admission: 06/07/21 Attend Phys: Bert Beard DO Discharge: Date of : 40 Report #: [id number] THIS REPORT FOR: cc: Roni Breaux Alan Z. DO Johnson, James E. DO ~ DATE OF SERVICE: 06/07/2021 CHIEF COMPLAINT: Axial back pain. HISTORY OF PRESENT ILLNESS: As you know, the patient is a very pleasant 81-year-old male who has had a longstanding history of axial back pain due to facet arthropathy. At our most recent visit of 01/27/2020, the patient was provided radiofrequency lesioning of medial branch nerves of the lumbar spine, which has provided excellent benefit from a low back standpoint. He had been doing very well until just recently. He states no injury or trauma that may have led to symptoms development. He reports greater than 70% improvement in overall pain, lasting for nearly 6 months. He has recently been diagnosed with prostate cancer with biopsies showing cancerous areas. He is being treated with further imaging and serial testing. He has not started on any chemotherapy. He is complaining of increasing axial back pain that began without inciting injury or trauma. He returns today to discuss treatment options. The patient is placing his current pain score at approximately 8-9/10. ALLERGIES: No known drug allergies. CURRENT MEDICATIONS: Hydrocodone 5/325 one tab every 6 hours p.r.n. for pain, nabumetone 500 mg 3 times a day, Zetia 10 mg once a day, escitalopram 20 mg once a day, atorvastatin 80 mg per day, omega-3 fish oil 1 tab per day, potassium gluconate 99 mg per day, omeprazole 20 mg per day, ascorbic acid 500 mg once a day, multivitamin 1 tab per day, verapamil ER 180 mg once a day. SOCIAL HISTORY: The patient denies tobacco, alcohol or IV or illicit drug use. He is retired, unaccompanied today. IMAGING: No new imaging available. PQRS: The patient has known arthritic changes of the lumbar spine and right shoulder. No rheumatoid arthritis. He is placing pain intensity anywhere from 8-9/10. He is not a fall risk, has not had a fall in last 3 months. He is not on blood thinners, but he is treated for hypertension. He is on chronic opioids, has a low opioid addiction potential based on our assessment tool. Pain impact is 38 of 70, moderate interference of daily activities secondary to pain. PHYSICAL EXAMINATION: VITAL SIGNS: Blood pressure 126/74, pulse 79, respiratory rate 16 and [facility] [address] [place] [address] PAIN MANAGEMENT CONSULTATION Name: DAVE MEJIAS Room #: REG CLKristen Ngo#: [id number] Admission: 06/07/21 Attend Phys: Bert Beard DO Discharge: Date of : 40 Report #: [id number] unlabored. The patient is 96% on room air. Height 5 feet 7 inches tall, weight 212 pounds, BMI calculated 33.3. GENERAL: Well-developed, well-nourished, well-hydrated 81-year-old male appearing stated age. Pain is rated today 8-9/10. HEENT: Normocephalic, atraumatic. Pupils equal, round and responsive to light. He is wearing a mask in compliance with COVID-19 regulations. EXTREMITIES: Show no clubbing, no cyanosis, no edema. MUSCULOSKELETAL: Lower extremity strength appears symmetrical 5/5. Muscle bulk and tone is symmetrical in lower extremities bilaterally. He is intact to light touch from L1 through S2 dermatomes. Seated straight leg raising negative. Supine straight leg raising negative. Sae's test is negative. Modified Gaenslen's positive for some axial low back pain. Lumbar provocation testing including extension, rotation, lateral flexion, all intensify axial back pain. ASSESSMENT: 1. Lumbosacral spondylosis without radicular or myelopathic symptoms. 2. Facet arthropathy of lumbar spine. 3. Chronic low back pain. 4. Prostate cancer. 5. Chronic intractable pain. PLAN: 1. The patient returns today in followup visit, complaining of increasing axial back pain located over the lower lumbar spine. Given the new diagnosis of prostate cancer, I believe it would be important to have the patient undergo x-ray imaging of the lumbar spine just for conformational sake and further evaluation. It would appear by physical exam, his symptoms are related again to his facet arthropathy, though we cannot rule out the possibility of prostate cancer involvement. We will send the patient for the x-ray imaging today. We will review those findings once they are available. I did advise the patient if he wishes to contact our clinic later today or first thing tomorrow, we should have those results for him. 2. Based on the physical exam and the recurrence of symptoms that he has been experiencing, the majority of symptoms appear to be related to the facets of the lumbar spine. The propagating testing was consistent with those conclusions. We discussed the treatment options with the patient today. We would recommend possibly looking towards medial branch nerve blocks and repeat radiofrequency lesioning. He wishes to delay this option until the first part of next year as he "is going to be busy over the next couple of months." 3. I did provide the patient a refill of hydrocodone 5/325 mg one tab p.o. q. 6 hours p.r.n. for pain. I have given the patient #90 tablets. Our last prescription. We provided, the patient was The patient was advised to take his medication as directed, not to take the medication prophylactically. He will watch for any side effects with its use. 4. I will see the patient back in followup visit once he has determined whether [address] [place] [address] PAIN MANAGEMENT CONSULTATION Name: DAVE MEJIAS Room #: REG CL Jeni#: [id number] Admission: 06/07/21 Attend Phys: Bert Beard DO Discharge: Date of : 40 Report #: [id number] or not he wishes to move forward with medial branch nerves and radiofrequency lesioning. He can contact our clinic about the findings of the x-ray. <ELECTRONICALLY SIGNED> By: Bert Beard DO 06/08/21 [id number] Bert Beard DO /nt
== END ==
LOC: PAIN 10:41
PROVIDERS: ATTEND Anesthesiology Pain Medicine
DX: C61 Malignant neoplasm of prostate (principal); M47.817 Spondylosis without myelopathy or radiculopathy, lumbosacral region; M47.816 Spondylosis without myelopathy or radiculopathy, lumbar region; G89.29 Other chronic pain; Z79.899 Other long term (current) drug therapy